=== PATIENT | male | born 1945 | race Caucasian/White ===

== ENCOUNTER 2022-04-24 10:40 | Inpatient (IN) | payer OTHER ==
[~2022-04-24] VITALS: Ht 175.3 cm; Wt 88.4 kg
[2022-04-24 11:55] LABS: Basophils # (auto) 0.1 10 ^3/uL (0-0.2); Basophils % (auto) 0.8 % (0.0-2.0); Eosinophils # (auto) 0.1 10 ^3/uL (0-0.8); Eosinophils % (auto) 1.7 % (0.0-7.0); Hematocrit 40.2 % (41.0-53.0); Hemoglobin 13.1 g/dL (13.5-17.5); Lymphocytes # (auto) 0.9 10 ^3/uL (0.4-5.4); Lymphocytes % (auto) 12.7 % (10.0-50.0); Mean Corpuscular Hemoglobin 31.5 pg (28.0-32.0); Mean Corpuscular Hgb Conc. 32.6 g/dL (32.0-36.0); Mean Corpuscular Volume 96.8 fL (80.0-100.0); Monocytes # (auto) 0.6 10 ^3/uL (0-1.3); Monocytes % (auto) 8.2 % (0.0-12.0); Neutrophils # (auto) 5.3 10 ^3/uL (1.6-8.6); Neutrophils % (auto) 76.6 % (37.0-80.0); Nucleated Red Blood Cells % 0.1 %; Red Blood Cells 4.15 10^6/uL (4.5-5.90); Red Cell Distribution Width 13.3 % (11.8-14.3); White Blood Cell 6.9 10^3/uL (4.4-10.8)
[2022-04-24] MEDS ORDERED: hydrALAZINE HCL 20 MG/ML VL IV PRN ×2 (12:00→17:00)
[2022-04-24] MEDS ORDERED: hydrALAZINE HCL 20 MG/ML VL IV ONE (12:00)
[2022-04-24] MEDS ORDERED: GLUCAGON HYDROCHLORIDE (RDNA) 1 MG VIAL IV ONE (12:00)
[2022-04-24 12:34] LABS: INR 1.08 (0.9-1.15); Partial Thromboplastin Time 26.2 sec (24.6-33.4)
[2022-04-24 12:42] LABS: Anion Gap 6 (5-15); BUN/Creatinine Ratio 19.3; Blood Urea Nitrogen 27 mg/dL (7-18); Carbon Dioxide 24 mmol/L (21-32); Chloride 109 mmol/L (98-107); GFR African American 63 mL/min; GFR Non-African American 52 mL/min; Glucose 115 mg/dL (74-106); Potassium 4.4 mmol/L (3.5-5.1); Sodium 139 mmol/L (136-145)
[2022-04-24 12:43] LABS: Alanine Aminotransferase 26 U/L (16-61); Albumin 3.6 g/dL (3.4-5.0); Alkaline Phosphatase 71 U/L (45-117); Aspartate Aminotransferase 22 U/L (15-37); Bilirubin, Total 1.1 mg/dL (0.2-1.0); Calcium 8.7 mg/dL (8.5-10.1); Magnesium 2.3 mg/dL (1.6-2.6); Total Protein 6.9 g/dL (6.4-8.2)
[2022-04-24 13:09] LABS: Cholesterol 103 mg/dL (< 200); Triglycerides 84 mg/dL (< 150)
[2022-04-24 13:11] LABS: HDL Cholesterol 50 mg/dL (40-59); LDL Cholesterol 53 mg/dL (< 100)
[2022-04-24] MEDS ORDERED: MORPHINE SULFATE INJ 2 MG/ml SYRG IV PRN ×2 (15:45→16:45)
[2022-04-24] MEDS ORDERED: NITROGLYCERIN 0.4 MG SL TAB SL PRN ×2 (15:45→16:45)
[2022-04-24] MEDS ORDERED: ATOR-47 PO (16:54)
[2022-04-25] VITALS (15 sets, daily range): BP systolic 128–165; BP diastolic 48–99
[2022-04-25 06:20] LABS: Basophils # (auto) 0 10 ^3/uL (0-0.2); Basophils % (auto) 0.5 % (0.0-2.0); Eosinophils # (auto) 0.1 10 ^3/uL (0-0.8); Eosinophils % (auto) 1.4 % (0.0-7.0); Hematocrit 40.4 % (41.0-53.0); Hemoglobin 13.2 g/dL (13.5-17.5); Lymphocytes # (auto) 0.9 10 ^3/uL (0.4-5.4); Lymphocytes % (auto) 10.4 % (10.0-50.0); Mean Corpuscular Hgb Conc. 32.7 g/dL (32.0-36.0); Mean Corpuscular Volume 94.7 fL (80.0-100.0); Monocytes # (auto) 0.7 10 ^3/uL (0-1.3); Monocytes % (auto) 8.2 % (0.0-12.0); Neutrophils # (auto) 6.8 10 ^3/uL (1.6-8.6); Neutrophils % (auto) 79.5 % (37.0-80.0); Red Blood Cells 4.26 10^6/uL (4.5-5.90); White Blood Cell 8.5 10^3/uL (4.4-10.8)
[2022-04-25 06:36] LABS: Albumin 3.3 g/dL (3.4-5.0)
[2022-04-25 06:39] LABS: BUN/Creatinine Ratio 18.3; Bilirubin, Total 1.9 mg/dL (0.2-1.0); Total Protein 6.9 g/dL (6.4-8.2)
[2022-04-25] MEDS: PANTOPRAZOLE 40 MG TAB PO SCH (10:58)
[2022-04-25] MEDS: ASPirin 81 mg TAB PO SCH (10:58)
[2022-04-25] MEDS ORDERED: FUROSEMIDE 20 MG TAB PO ONE (11:15)
[2022-04-25] MEDS ORDERED: CALCIUM GLUC 1,000mg/50ml-NS 50 ML IV ONE (11:15)
[2022-04-25] MEDS ORDERED: ASPI1TAB20 PO (13:41)
[2022-04-25] MEDS ORDERED: HYDR25TA5 PO (13:41)
[2022-04-25] MEDS ORDERED: BISO5TAB44 PO (13:41)
[2022-04-25] MEDS ORDERED: OMEP20TA PO (13:41)
[2022-04-25] MEDS ORDERED: ATOR40TA52 PO (13:42)
[2022-04-25] MEDS ORDERED: FURO1TAB33 PO (13:47)
[2022-04-25] MEDS ORDERED: LISI2.5T47 PO (13:47)
[2022-04-25 13:53] LABS: Urine Bacteria NONE SEEN /hpf (None Seen); Urine Blood Negative /uL (Negative); Urine WBC <1 /hpf (0 - 3)
[2022-04-25] MEDS ORDERED: VANCOMYCIN HCL 1000 MG VL ONE (15:56)
[2022-04-25] MEDS ORDERED: VANCOMYCIN 1GM/250ML 250 ML IV ONE (15:56)
[2022-04-25] MEDS ORDERED: fentaNYL CITRATE 100 MCG/2 ML VL ONE (16:05)
[2022-04-25] MEDS ORDERED: MIDAZOLAM HCL 2MG/2ML 2ml VIAL (1mg/ml) ONE (16:05)
[2022-04-25] MEDS ORDERED: LIDOCAINE 2%HCL (LOCAL ANESTH.) INJ 20ML MDV ONE (16:10)
[2022-04-25] MEDS: ATORVASTATIN 20 MG TAB PO SCH (21:05)
[2022-04-26] VITALS (25 sets, daily range): BP systolic 122–163; BP diastolic 52–82
[2022-04-26 05:31] LABS: BUN/Creatinine Ratio 21.4; Calcium 8.6 mg/dL (8.5-10.1)
[2022-04-26] MEDS ORDERED: FUROSEMIDE 40 MG/4 ML VIAL IV ONE (10:00)
[2022-04-26] MEDS: LOSARTAN POTASSIUM 50 MG TAB PO SCH (10:00)
[2022-04-26] MEDS ORDERED: POTASSIUM CHL 20 Meq TABLET PO ONE (10:00)
[2022-04-26] MEDS ORDERED: METOPROLOL SUCCINATE XL 50 MG TAB PO SCH (10:00)
[2022-04-26] MEDS ORDERED: FUROSEMIDE 20 MG TAB PO SCH (10:00)
[2022-04-26] MEDS: METOPROLOL SUCCINATE XL 50 MG TAB PO SCH (10:00)
[2022-04-26] MEDS ORDERED: LOSARTAN POTASSIUM 50 MG TAB PO SCH (10:00)
[2022-04-26] MEDS: ASPirin 81 mg TAB PO SCH (11:58)
[2022-04-26] MEDS: PANTOPRAZOLE 40 MG TAB PO SCH (11:58)
[2022-04-26] MEDS: ATORVASTATIN 20 MG TAB PO SCH (23:26)
[2022-04-27 04:37] LABS: Calcium 8.7 mg/dL (8.5-10.1); Potassium 3.9 mmol/L (3.5-5.1)
[2022-04-27 04:39] LABS: BUN/Creatinine Ratio 21.7
[2022-04-27 05:00] VITALS: BP 144/63
[2022-04-27 09:00] VITALS: BP 159/76
[2022-04-27] MEDS: ASPirin 81 mg TAB PO SCH (09:33)
[2022-04-27] MEDS: PANTOPRAZOLE 40 MG TAB PO SCH (09:33)
[2022-04-27] MEDS: LOSARTAN POTASSIUM 50 MG TAB PO SCH (09:33)
[2022-04-27] MEDS: METOPROLOL SUCCINATE XL 50 MG TAB PO SCH (09:34)
[2022-04-27] MEDS ORDERED: FUROSEMIDE 40 MG/4 ML VIAL IV SCH (10:00)
[2022-04-27] MEDS ORDERED: POTASSIUM CHL 20 Meq TABLET PO SCH (10:00)
[2022-04-27 11:36] VITALS: BP 159/76
== END 2022-04-27 12:00 | disposition home or self-care (01) | DRG 242 ==
LOC: ER 10:40 → EDBD 10:40 → TELE 16:39 → DOU IN ICU 04-25 07:45 → TELE-WESTW 04-26 18:12
PROVIDERS: ADMIT Registered Nurse; ATTEND Internal Medicine
PROC: 0JH606Z Insertion of Pacemaker, Dual Chamber into Chest Subcutaneous Tissue and Fascia, Open Approach (ICD-10-PCS; principal; 2022-04-25)
PROC: 02H63JZ Insertion of Pacemaker Lead into Right Atrium, Percutaneous Approach (ICD-10-PCS; 2022-04-25)
PROC: 02HK3JZ Insertion of Pacemaker Lead into Right Ventricle, Percutaneous Approach (ICD-10-PCS; 2022-04-25)
DX: I44.2 Atrioventricular block, complete (principal); I50.31 Acute diastolic (congestive) heart failure; J96.00 Acute respiratory failure, unspecified whether with hypoxia or hypercapnia; N17.0 Acute kidney failure with tubular necrosis; I13.0 Hypertensive heart and chronic kidney disease with heart failure and stage 1 through stage 4 chronic kidney disease, or unspecified chronic kidney disease; T44.7X5A Adverse effect of beta-adrenoreceptor antagonists, initial encounter; E78.5 Hyperlipidemia, unspecified; N18.30 Chronic kidney disease, stage 3 unspecified; Z20.822 Contact with and (suspected) exposure to COVID-19; K21.9 Gastro-esophageal reflux disease without esophagitis; N40.0 Benign prostatic hyperplasia without lower urinary tract symptoms; R73.03 Prediabetes; Y92.89 Other specified places as the place of occurrence of the external cause; Z90.49 Acquired absence of other specified parts of digestive tract
CPT/HCPCS: 33208; 36415; 71045; 80048; 80053; 80061; 81001; 83036; 83735; 83880; 84443; 84484; 85025; 85610; 85730; 86850; 86900; 86901; 87081; 93005; 93306; 96374; 96375; 99152; 99153; 99291; C1785; G0378; J2250